=== PATIENT | female | born 1970 | race Caucasian/White ===

== ENCOUNTER 2018-08-21 12:00 | Emergency (ER) | payer SELFPAY ==
[~2018-08-21] VITALS: Ht 152.4 cm; Wt 61.2 kg
[~2018-08-21 12:00] MED LIST: SULF1TAB38 PO
--- OUTSIDE RECORDS SUMMARY | 2018-08-21 12:05 | XMS REPORT ---
Author VIKY Randall Organization [employer] Address Unknown Phone Unavailable Care Team Providers Care Corporate Legal Manager Name Role Phone VIKY CALIXTO CP Unavailable Allergies No Known Allergies Problems Problem Type Condition Code Onset Dates Condition Status Problem Contact dermatitis and other eczema, due to unspecified cause 692.9 Active Problem Unspecified breast screening V76.10 Active Problem Unspecified pruritic disorder 698.9 Active Problem Cough 786.2 Active Problem Influenza with other respiratory manifestations 487.1 Active Problem Screening for malignant neoplasm of the cervix V76.2 Active Problem Unspecified vaginitis and vulvovaginitis 616.10 Active Medications No Known Medications Results No Known Results Summary Purpose [employer] Submission
--- OUTSIDE RECORDS SUMMARY | 2018-08-21 12:05 | XMS REPORT | Continuity of Care Document ---
Author Author [facility] Address Unknown Phone Unavailable Allergies There is no data. Medications There is no data. Problems Date Dx Coded Attending Type Code Diagnosis Diagnosed By 08/26/2009 DOYLE MERCADO APRN 719.44 PAIN IN JOINT, HAND 04/23/2012 DOYLE MERCADO APRN 616.10 VAGINITIS VULVOVAGINITIS UNSPECIFIED 04/23/2012 DOYLE MERCADO APRN V76.10 BREAST CANCER SCREENING 04/23/2012 DOYLE MERCADO APRN V76.2 CERVICAL CANCER SCREENING (PAP SMEAR) 06/12/2012 DOYLE MERCADO APRN 692.9 DERMATITIS CONTACT UNSPECIFIED 06/12/2012 DOYLE MERCADO APRN 698.9 PRURITUS NOS 10/27/2014 DOYLE MERCADO APRN 487.1 INFLUENZA 10/27/2014 DOYLE MERCADO APRN 786.2 COUGH Procedures Code [place] [address] INFLUENZA A & B (IN-HOUSE) 10/27/2014 Results There is no data. Encounters ACCT No. Visit Date/Time Discharge Status Pt. Type Provider Facility Loc./Unit Complaint [id number] 10/27/2014 14:24:00 10/27/2014 23:59:59 CLS Outpatient DOYLE MERCADO APRN [id number] 05/24/2013 01:47:00 05/24/2013 02:59:00 DIS Emergency
--- OUTSIDE RECORDS SUMMARY | 2018-08-21 12:05 | XMS REPORT | Continuity of Care Document ---
Author Author [facility] Organization [facility] Address Unknown Phone Unavailable Care Team Providers Care Pension Fund Manager Name Role Phone [facility] Insurance Providers Payer Name Policy Number Subscriber Name Relationship Self Pay Mary Beth Reyes Self / Same As Patient Advance Directives Directive Response Recorded Date Advance Directives N 05/24/13 1:50am Organ Donor Y 05/24/13 1:50am Problems No Known Problems or Medical conditions. Social History History Response Recorded Date/Time Alcohol Use Denies Use 05/24/13 1:50am Recreational Drug Use N 05/24/13 1:50am Sexually Transmitted Disease N 05/24/13 1 :50am Allergies, Adverse Reactions, Alerts Allergen Type Severity Reaction Last Updated No Known Drug Allergies 12/08/12 Medications Medication Dose Units Route Sig Qty Days Trimethoprim/Sulfamethoxazole (Bactrim Ds) 1 Ea PO BID 5 Immunizations Name Given Type Date of Influenza Vaccine 07/29/12 H Response Recorded Date/Time Status not known Unknown Results No Known Relevant Diagnostic Tests, Laboratory Data and/or Discharge Summary. Encounters Encounter Location Date/Time Departed Emergency Room [facility] 1:47am
--- NOTE | 2018-08-21 12:29 | ED Lower Extremity ---
General Chief Complaint: Lower Extremity Stated Complaint: L KNEE PAIN Nursing Triage Note: PT CO OF L KNEE PAIN, STATES STARTED HURTING YESTERDAY. STATES SOMETIMES HURTS WHEN WEATHER CHANGES. HAS TAKEN ADVIL FOR PAIN Nursing Sepsis Screen: No Definite Risk Source: patient Exam Limitations: no limitations History of Present Illness Date Seen by Provider: Aug 21, 2018 Time Seen by Provider: 12:21 Initial Comments To ER with c/o left knee pain. History of left knee pain and has had knee scope before. 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 She took an advil this morning without much relief. She does have this pain sometimes with weather changes but today the pain is worse than usual. No falls or trauma. Onset: other Severity: moderate Pain/Injury Location: left knee Method of Injury: unknown Modifying Factors: Worse With Movement Allergies and Home Medications Allergies Coded Allergies: No Known Drug Allergies (Unverified , 12/08/12) Patient Home Medication List Home Medication List Reviewed: Yes Review of Systems Constitutional: see HPI EENTM: see HPI Respiratory: no symptoms reported Cardiovascular: no symptoms reported Genitourinary: no symptoms reported Musculoskeletal: see HPI Skin: no symptoms reported Psychiatric/Neurological: No Symptoms Reported Past Iflqgkf-Iikpvy-Mmpcbf Hx Patient Social History Alcohol Use: Denies Use Recreational Drug Use: No Smoking Status: Never a Smoker Recent Foreign Travel: No Contact w/Someone Who Travel: No Recent Infectious Disease Expo: No Recent Hopitalizations: No Immunizations Up To Date Tetanus Booster (TDap): Unknown Date of Influenza Vaccine: Jul 29, 2012 Past Medical History Respiratory: No Cardiac: No Neurological: No Reproductive Disorders: No 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 oz. 61.169805ry; BMI Method:Stated General Appearance: WD/WN, no apparent distress HEENT: PERRL/EOMI, normal ENT inspection Hips: bilateral hip non-tender, bilateral hip normal inspection, bilateral hip normal range of motion Legs: bilateral leg non-tender, bilateral leg normal range of motion Knees: left knee pain, left knee soft tissue tenderness Ankles: bilateral ankle non-tender, bilateral ankle normal inspection, bilateral ankle normal range of motion Feet: bilateral foot non-tender, bilateral foot normal inspection, bilateral foot normal range of motion Neurologic/Psychiatric: alert, normal mood/affect, oriented x 3 Skin: normal color, warm/dry Progress/Results/Core Measures Results/Orders My Orders Orders - BOB ROUSE APRN Dexamethasone Injection (Decadron Inject (08/21/18 12:30) Tramadol Tablet (Ultram Tablet) (08/21/18 12:30) Vital Signs/I&O 08/21/18 12:08 Temp 97.5 Pulse 54 Resp 18 B/P (MAP) 128/81 (97) Pulse Ox 97 Blood Pressure Mean: 97 Departure Impression Primary Impression: Internal derangement of knee Qualified Codes: M23.92 - Unspecified internal derangement of left knee Disposition: HOME, SELF-CARE Condition: Stable Departure-Patient Inst. Decision time for Depature: 12:30 Referrals: [facility] (PCP/Family) Primary Care Physician Patient Instructions: Arthritis and Exercise Add. Discharge Instructions: 1. I suspect that your knee pain is at least partially if not completely caused by arthritis. Given that there was no injury, we would expect the bones to look normal on x-ray which is essentially all that an x-ray can tell us. In your case an MRI would be a more useful test. I've made an appointment for you with [facility] to see nurse practitioner Gisell Martin on August 28 at 8: 40 AM. Since MRI has to be scheduled, discuss your knee pain with her at that visit and if she feels that an MRI is warranted further evaluate this. All discharge instructions reviewed with patient and/or family. Voiced understanding. Scripts Tramadol HCl (Ultram) 50 Mg Tablet 50 MG PO Q6H PRN for PAIN-MODERATE TO SEVERE, #14 TAB Prov: BOB ROUSE APRN 08/21/18 Work/School Note: Work Release Form Date Seen in the Emergency Department: Aug 21, 2018 Return to Work: Aug 23, 2018 BOB ROUSE APRN Aug 21, 2018 12:29
[2018-08-21] MEDS ORDERED: DEXAMETHASONE 10 MG/ML (DECADRON) 1 ML VIAL IM ONE (12:30)
[2018-08-21] MEDS ORDERED: TRAM-42 PO (12:32)
[2018-08-21 12:38] VITALS: BP 128/81
== END 2018-08-21 12:38 | disposition home or self-care (01) ==
LOC: EDUNIT# 12:00 → ER 12:02
DX: M23.92 Unspecified internal derangement of left knee (principal); Z98.51 Tubal ligation status
CPT/HCPCS: 96372; 99284

== ENCOUNTER 2019-04-08 12:44 | Emergency (ER) | payer SELFPAY ==
[~2019-04-08] VITALS: Ht 152.4 cm; Wt 61.2 kg
[~2019-04-08 12:44] MED LIST changes: +TRAM-42 PO
[2019-04-08] MEDS ORDERED: NS IV 1000 ML 1,000 ML IV SCH (13:01)
[2019-04-08 13:19] LABS: BASOPHILS % (AUTO) 0 % (0-10); EOSINOPHILS # (AUTO) 0.1 10^3/uL (0.0-0.3); EOSINOPHILS % (AUTO) 2 % (0-10); HEMATOCRIT 29 % (35-52); HEMOGLOBIN 9.2 G/DL (11.5-16.0); LYMPHOCYTES # (AUTO) 1.2 X 10^3 (1.0-4.0); LYMPHOCYTES % (AUTO) 26 % (12-44); MEAN CORPUSCULAR HEMOGLOBIN 25 PG (25-34); MEAN CORPUSCULAR HGB CONC 32 G/DL (32-36); MEAN CORPUSCULAR VOLUME 78 FL (80-99); MEAN PLATELET VOLUME 9.4 FL (7.4-10.4); MONOCYTES # (AUTO) 0.3 X 10^3 (0.0-1.0); MONOCYTES % (AUTO) 6 % (0-12); NEUTROPHILS % (AUTO) 65 % (42-75); PLATELET COUNT 287 10^3/uL (130-400); RED CELL DISTRIBUTION WIDTH 12.8 % (10.0-14.5); WHITE BLOOD COUNT 4.5 10^3/uL (4.3-11.0)
--- NOTE | 2019-04-08 13:24 | ED GU-Female ---
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 a&ox4. c/o excessive bleeding while on menstraul cycle. Pt reports to have gone through >20 super tampons since 0300 this am. Reports dark red bleeding with blood clots. Repots menstraul cycle began on 04/06/18. Denies pain or discomfort. Nursing Sepsis Screen: No Definite Risk History of Present Illness Date Seen by Provider: Apr 08, 2019 Time Seen by Provider: 12:55 Initial Comments 49-year-old female presents for menorrhagia. She reports beginning on March 14 she had a heavy period that lasted 3-5 days, it subsided and there was no bleeding for 4-5 days then she began having heavy bleeding for 2-3 days. The bleeding started again 2 days ago. She is going through 1-2 tampons/hour and having some bleeding through to her clothes. 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 She is due for her well woman check up with Gisell Martin APRN at [facility]. No history of irregular cycles until the last few months. She had 6 vaginal deliveries with no post bleeding problems. She did begin a Multi Vitamin with Iron. She denies feeling weak, dizzy or fatigued. She had tubal ligation but no other surgeries or health issues. Timing/Duration: just prior to arrival Severity/Quality: severe Radiation: none Prior Genitourinary Problems: none Sexual [place] History: less than 2 months ago, single partner (Since 2002) Associated Symptoms: denies symptoms Allergies and Home Medications Allergies Coded Allergies: No Known Drug Allergies (Unverified , 12/08/12) Home Medications Medroxyprogesterone Acetate 10 Mg Tablet, 10 MG PO DAILY Prescribed by: PATSY ROE on 04/08/19 1341 Tramadol HCl 50 Mg Tablet, 50 MG PO Q6H PRN for PAIN-MODERATE TO SEVERE Prescribed by: BOB ROUSE on 08/21/18 1232 Patient Home Medication List Home Medication List Reviewed: Yes Review of Systems Review of Systems Constitutional: no symptoms reported, see HPI Genitourinary: see HPI, discharge (heavy menstrual bleeding) : No (tubal ligation) All Other Systemes Reviewed Negative Unless Noted: Yes Past Geqkege-Wovvfx-Mfpqss Hx Past Med/Social Hx: Reviewed Nursing Past Med/Soc Hx Patient Social History Recent Foreign Travel: No Contact w/Someone Who Travel: No Recent Infectious Disease Expo: No Recent Hopitalizations: No Immunizations Up To Date Tetanus Booster (TDap): Unknown Date of Influenza Vaccine: Jul 29, 2012 Past Medical History Respiratory: No Cardiac: No Neurological: No Reproductive Disorders: No DOCUMENTATION CONSULTANT History: Tubal Ligation Sexually Transmitted Disease: No Gastrointestinal: No Musculoskeletal: No Endocrine: No Cancer: No Psychosocial: No Integumentary: No Blood Disorders: No Family Medical History Cancer Physical Exam Vital Signs Vital Signs - First Documented 04/08/19 12:53 Temp 97.5 Pulse 91 Resp 16 B/P (MAP) 116/84 (95) Pulse Ox 98 O2 Delivery Room Air Capillary Refill : Less Than 3 Seconds Height, Weight, BMI Height: 5'0" Weight: 135lbs. oz. 61.184642gz; BMI Method:Stated General Appearance: WD/WN, no apparent distress HEENT: PERRL/EOMI, normal ENT inspection Neck: non-tender, full range of motion Cardiovascular: normal peripheral pulses, regular rate, rhythm, no murmur Respiratory: chest non-tender, lungs clear, normal breath sounds Gastrointestinal: normal bowel sounds, non tender, soft Back: normal inspection, no CVA tenderness Neurologic/Psychiatric: no motor/sensory deficits, alert, normal mood/affect, oriented x 3 Skin: normal color, warm/dry Progress/Results/Core Measures Suspected Sepsis Recent Fever Within 48 Hours: No Infection Criteria Present: None New/Unexplained Altered Menta: No Sepsis Screen: No Definite Risk SIRS Temperature:97.5 Pulse: 91 Respiratory Rate: 16 Laboratory Tests 04/08/19 13:08: White Blood Count 4.5 Blood Pressure 116 /84 Mean: 95 Laboratory Tests 04/08/19 13:08: Creatinine 0.76, INR Comment 0.9, Platelet Count 287, Total Bilirubin 0.3 Results/Orders Lab Results Laboratory Tests Test 04/08/19 13:08 04/08/19 13:47 Range/Units White Blood Count 4.5 4.3-11.0 10^3/uL Red Blood Count 3.69 L 4.35-5.85 10^6/uL Hemoglobin 9.2 L 11.5-16.0 G/DL Hematocrit 29 L 35-52 % Mean Corpuscular Volume 78 L 80-99 FL Mean Corpuscular Hemoglobin 25 25-34 PG Mean Corpuscular Hemoglobin Concent 32 32-36 G/DL Red Cell Distribution Width 12.8 10.0-14.5 % Platelet Count 287 130-400 10^3/uL Mean Platelet Volume 9.4 7.4-10.4 FL Neutrophils (%) (Auto) 65 42-75 % Lymphocytes (%) (Auto) 26 12-44 % Monocytes (%) (Auto) 6 0-12 % Eosinophils (%) (Auto) 2 0-10 % Basophils (%) (Auto) 0 0-10 % Neutrophils # (Auto) 3.0 1.8-7.8 X 10^3 Lymphocytes # (Auto) 1.2 1.0-4.0 X 10^3 Monocytes # (Auto) 0.3 0.0-1.0 X 10^3 Eosinophils # (Auto) 0.1 0.0-0.3 10^3/uL Basophils # (Auto) 0.0 0.0-0.1 10^3/uL Prothrombin Time 12.6 12.2-14.7 SEC INR Comment 0.9 0.8-1.4 Activated Partial Thromboplast Time 27 24-35 SEC Sodium Level 141 135-145 MMOL/L Potassium Level 3.8 3.6-5.0 MMOL/L Chloride Level 109 H 98-107 MMOL/L Carbon Dioxide Level 25 21-32 MMOL/L Anion Gap 7 5-14 MMOL/L Blood Urea Nitrogen 11 7-18 MG/DL Creatinine 0.76 0.60-1.30 MG/DL Estimat Glomerular Filtration Rate > 60 BUN/Creatinine Ratio 14 Glucose Level 96 70-105 MG/DL Calcium Level 9.2 8.5-10.1 MG/DL Corrected Calcium 9.0 8.5-10.1 MG/DL Total Bilirubin 0.3 0.1-1.0 MG/DL Aspartate Amino Transf (AST/SGOT) 13 5-34 U/L Alanine Aminotransferase (ALT/SGPT) 10 0-55 U/L Alkaline Phosphatase 73 40-136 U/L Total Protein 6.5 6.4-8.2 GM/DL Albumin 4.3 3.2-4.5 GM/DL Urine Color RED H Urine Clarity CLOUDY Urine pH 6 5-9 Urine Specific [place] 1.015 L 1.016-1.022 Urine Protein 3+ H NEGATIVE Urine Glucose (UA) NEGATIVE NEGATIVE Urine Ketones NEGATIVE NEGATIVE Urine Nitrite NEGATIVE NEGATIVE Urine Bilirubin NEGATIVE NEGATIVE Urine Urobilinogen NORMAL NORMAL MG/DL Urine Leukocyte Esterase 2+ H NEGATIVE Urine RBC (Auto) 5+ H NEGATIVE Urine RBC TNTC H /HPF Urine WBC 0-2 /HPF Urine Squamous Epithelial Cells 0-2 /HPF Urine Crystals NONE /LPF Urine Bacteria NEGATIVE /HPF Urine Casts NONE /LPF Urine Mucus NEGATIVE /LPF Urine Culture Indicated NO My Orders Orders - PATSY ROE Cbc With Automated Diff (04/08/19 12:51) Comprehensive Metabolic Panel (04/08/19 12:51) Partial Thromboplastin Time (04/08/19 12:51) Ua Culture If Indicated (04/08/19 12:51) Protime With Inr (04/08/19 12:51) Ed Iv/Invasive Line Start (04/08/19 13:01) Ns Iv 1000 Ml (Sodium Chloride 0.9%) (04/08/19 13:01) Medroxyprogesterone Tablet (Provera Tabl (04/09/19 09:00) Ferrous Sulfate Tablet (Feosol Tablet) (04/08/19 13:44) Vital Signs/I&O 04/08/19 04/08/19 12:53 14:35 Temp 97.5 97.5 Pulse 91 85 Resp 16 16 B/P (MAP) 116/84 (95) 109/86 (94) Pulse Ox 98 98 O2 Delivery Room Air Room Air Capillary Refill : Less Than 3 Seconds Blood Pressure Mean: 95 Progress Note : Time: 12:55 Progress Note Patient seen and evaluated, will obtain labs, normal saline 1 L IV. 1340 Hgb 9.2; patient reports bleeding has decreased since admission to the emergency department. No signs or symptoms of anemia. All other labs essentially normal. Provera 10 mg orally and iron. 1415 vital signs remained stable. Discharge instructions and return precautions reviewed with the patient. Will follow-up with Dr. Quintanilla at [facility] in one week. All questions answered. Departure Impression Primary Impression: Dysfunctional uterine bleeding Disposition: HOME, SELF-CARE Condition: Improved Departure-Patient Inst. Decision time for Depature: 14:15 Referrals: [facility] (PCP/Family) Primary Care Physician Patient Instructions: Good Food Sources of Iron, Heavy Periods (DC) Add. Discharge Instructions: You have been scheduled with a well woman check at [facility] with Dr. Larson on April 21 at 3:00 PM. If you need to reschedule or cancel, please call [phone]. Take the Provera one tablet daily as prescribed. Continue to take a multiple vitamin with iron. You may want to take Stool Softener (over the counter), Iron can cause constipation. Eat foods that are high in iron: spinach, red meats, etc. Increase water intake: 16 oz every 2 hours while awake. Change positions from sitting, standing and lying slowly. Do not stand on chairs, ladders, or other rays devices if feeling weak or dizzy. Return to emergency department for shortness breath, dizziness, loss of consciousness, increased blood loss or new concerns. All discharge instructions reviewed with patient and/or family. Voiced understanding. Scripts Medroxyprogesterone Acetate (Provera) 10 Mg Tablet 10 MG PO DAILY, #20 TAB 0 Refills Prov: PATSY ROE 04/08/19 Work/School Note: Work Release Form Date Seen in the Emergency Department: Apr 08, 2019 Return to Work: Apr 09, 2019 Restrictions: No Restrictions Other Restrictions Listed Below: Avoid standing on elevated surface. Copy Copies To 1: AMARILIS QUINTANILLA AMY ARNP Apr 08, 2019 13:24
[2019-04-08 13:32] LABS: INR 0.9 (0.8-1.4); PROTHROMBIN TIME PATIENT 12.6 SEC (12.2-14.7)
[2019-04-08] MEDS ORDERED: MEDR10TA PO (13:41)
[2019-04-08 13:42] LABS: ALANINE AMINOTRANSFERASE 10 U/L (0-55); ALBUMIN 4.3 GM/DL (3.2-4.5); ALKALINE PHOSPHATASE 73 U/L (40-136); BILIRUBIN,TOTAL 0.3 MG/DL (0.1-1.0); BUN/CREATININE RATIO 14; CALCIUM 9.2 MG/DL (8.5-10.1); CARBON DIOXIDE 25 MMOL/L (21-32); CHLORIDE 109 MMOL/L (98-107); CREATININE SERUM 0.76 MG/DL (0.60-1.30); GFR ESTIMATED > 60; GLUCOSE 96 MG/DL (70-105); POTASSIUM 3.8 MMOL/L (3.6-5.0); SODIUM 141 MMOL/L (135-145); TOTAL PROTEIN 6.5 GM/DL (6.4-8.2)
[2019-04-08] MEDS ORDERED: FERROUS SULF 325 MG (IRON) TAB PO STA (13:44)
--- OUTSIDE RECORDS SUMMARY | 2019-04-08 13:46 | XMS REPORT ---
Author Author Migration, Doctor Organization [facility] Address Unknown Phone Unavailable Care Team Providers Care Group Supervisor Yard Name Role Phone Migration, Doctor Unavailable Unavailable PROBLEMS Unknown Problems ALLERGIES No Information ENCOUNTERS Encounter Location Date Diagnosis [facility] [id number] [place] [id number] Sep, Acute pain of left knee M25.562 ; Screening for diabetes mellitus Z13.1 ; Screening for thyroid disorder Z13.29 ; Screening, anemia, deficiency, iron Z13.0 and Screening for lipoid disorders Z13.[id number] [place] [phone] Jul, [facility] [address] [address] February, Irregular menses N92.6 [facility] [id number] [place] [phone] Jan, [facility] [id number] [place] [phone] Jan, [facility] [id number] [place] [phone] Sep, [facility] [id number] [place] [phone] Sep, [facility] [id number] [place] [phone] Jun, [facility] [id number] [place] [phone] Jun, [facility] [id number] [place] [phone] May, [facility] [id number] [place] [phone] Apr, [facility] [address] [facility] [id number] [place] [address] Apr, [facility] [address] [facility] [id number] [address] Mar, [facility] [address] [facility] [id number] [place] [address] Jul, IMMUNIZATIONS No Known Immunizations SOCIAL HISTORY Never Assessed REASON FOR VISIT [facility] PLAN OF CARE VITAL SIGNS MEDICATIONS No Known Medications RESULTS No Results PROCEDURES No Known procedures INSTRUCTIONS MEDICATIONS ADMINISTERED No Known Medications MEDICAL (GENERAL) HISTORY Type Description Date Surgical History Scar tissue removal bilateral knee Surgical History R&L carpal tunnel Surgical History Tubal Ligation Surgical History Exploratory Lap Hospitalization History Childbirth Hospitalization History UTI
--- OUTSIDE RECORDS SUMMARY | 2019-04-08 13:46 | XMS REPORT ---
Author Author Migration, Doctor Organization [facility] Address Unknown Phone Unavailable Care Team Providers Care Interior Decorator Name Role Phone Migration, Doctor Unavailable Unavailable PROBLEMS Unknown Problems ALLERGIES No Information ENCOUNTERS Encounter Location Date Diagnosis [facility] [id number] [place] [phone] Sep, Acute pain of left knee M25.562 ; Screening for diabetes mellitus Z13.1 ; Screening for thyroid disorder Z13.29 ; Screening, anemia, deficiency, iron Z13.0 and Screening for lipoid disorders Z13.220 [facility] [id number] [place] [phone] Jul, [facility] [address] [address] February, Irregular menses N92.6 [facility] [id number] [place] [phone] Jan, [facility] [id number] [place] [phone] Jan, [facility] [id number] [place] [phone] Sep, [facility] [id number] [place] [phone] Sep, [facility] [id number] [place] [phone] Jun, [facility] [id number] [place] [phone] Jun, [facility] [id number] [place] [phone] May, [facility] [id number] [place] [phone] Apr, [facility] [address] [facility] [id number] [place] [address] Apr, [facility] [address] [facility] [id number], [place] [address] Mar, [facility] [address] [facility] [id number] [place] [address] Jul, IMMUNIZATIONS No Known Immunizations SOCIAL HISTORY Never Assessed REASON FOR VISIT [facility] PLAN OF CARE VITAL SIGNS MEDICATIONS No Known Medications RESULTS No Results PROCEDURES No Known procedures INSTRUCTIONS MEDICATIONS ADMINISTERED No Known Medications MEDICAL (GENERAL) HISTORY Type Description Date Surgical History Scar tissue removal bilateral knee Surgical History R&L carpal tunnel Surgical History Tubal Ligation Surgical History Exploratory Lap Hospitalization History Childbirth Hospitalization History UTI
--- OUTSIDE RECORDS SUMMARY | 2019-04-08 13:46 | XMS REPORT ---
Author Author Migration, Doctor Organization [facility] Address Unknown Phone Unavailable Care Team Providers Care Paint Supervisor Name Role Phone Migration, Doctor Unavailable Unavailable PROBLEMS Unknown Problems ALLERGIES No Information ENCOUNTERS Encounter Location Date Diagnosis [facility] [id number] [place] [phone] Sep, Acute pain of left knee M25.562 ; Screening for diabetes mellitus Z13.1 ; Screening for thyroid disorder Z13.29 ; Screening, anemia, deficiency, iron Z13.0 and Screening for lipoid disorders Z13.220 [facility] [id number] [place] [phone] Jul, [facility] [address] [address] February, Irregular menses N92.6 [facility] [id number] [place] [phone] Jan, [facility] [id number] [place] [phone] Jan, [facility] [id number] [place] [phone] Sep, [facility] [id number] [place] [phone] Sep, [facility] [id number] [place] [phone] Jun, [facility] [id number] [place] [phone] Jun, [facility] [id number] [place] [phone] May, [facility] [id number] [place] [phone] Apr, [facility] [address] [facility] [id number] [place] [address] Apr, [facility] [address] [facility] [id number] [address] Mar, [facility] [address] [facility] [id number] [place] [address] Jul, IMMUNIZATIONS No Known Immunizations SOCIAL HISTORY Never Assessed REASON FOR VISIT [facility] [place] VITAL SIGNS MEDICATIONS No Known Medications RESULTS No Results PROCEDURES No Known procedures INSTRUCTIONS MEDICATIONS ADMINISTERED No Known Medications MEDICAL (GENERAL) HISTORY Type Description Date Surgical History Scar tissue removal bilateral knee Surgical History R&L carpal tunnel Surgical History Tubal Ligation Surgical History Exploratory Lap Hospitalization History Childbirth Hospitalization History UTI
--- OUTSIDE RECORDS SUMMARY | 2019-04-08 13:46 | XMS REPORT | Continuity of Care Document ---
Author Organization Unknown Address Unknown Allergies Active Description Code Type Severity Reaction Onset Reported/Identified Relationship to Patient Clinical Status Yes No Known Drug Allergies [id number] Drug Allergy Unknown N/A 12/08/2012 Medications There is no data. Problems Date [...] 06/12/2012 DOYLE MERCADO APRN 698.9 PRURITUS NOS 05/24/2013 ADDY DYER, DARIN Mena Ot 459.89 CIRCULATORY DISEASE NEC 10/27/2014 DOYLE MERCADO APRN 487.1 INFLUENZA 10/27/2014 DOYLE MERCADO APRN 786.2 COUGH Procedures Code [place] [address] INFLUENZA A & B (IN-HOUSE) 10/27/2014 Results There is no data. Encounters ACCT No. Visit Date/Time Discharge Status Pt. Type Provider Facility Loc./Unit Complaint [id number] 10/27/2014 14:24:00 10/27/2014 23:59:59 CLS Outpatient DOYLE MERCADO APRN [id number] 10/23/2018 09:20:00 10/23/2018 23:59:59 CLS Outpatient FRANK RASHID [facility] [place] [id number] 08/21/2018 12:02:00 08/21/2018 12:38:00 DIS Emergency BOB ROUSE APRN [facility] ER L KNEE PAIN [id number] 05/24/2013 01:47:00 05/24/2013 02:59:00 DIS Emergency ADDY DYER, DARIN [facility] ER BRUISE ON RT ARM
--- OUTSIDE RECORDS SUMMARY | 2019-04-08 13:46 | XMS REPORT | Continuity of Care Document ---
Author Organization Unknown Address Unknown Allergies Active Description Code Type Severity Reaction Onset Reported/Identified Relationship to Patient Clinical Status Yes No Known Drug Allergies [id number] Drug Allergy Unknown N/A 12/08/2012 Medications There is no data. Problems Date Dx Coded Attending Type Code Diagnosis Diagnosed By 08/26/2009 DOYLE MERCADO APRN 719.44 PAIN IN JOINT, HAND 04/23/2012 DOYLE MERCADO APRN 616.10 VAGINITIS VULVOVAGINITIS UNSPECIFIED 04/23/2012 DOYLE MERCADO APRN V76.10 BREAST CANCER SCREENING 04/23/2012 DOYLE MERCADO APRN V76.2 CERVICAL CANCER SCREENING (PAP SMEAR) 06/12/2012 DOYEL MERCADO APRN 692.9 DERMATITIS CONTACT UNSPECIFIED 06/12/2012 DOYLE MERCADO APRN 698.9 PRURITUS NOS 05/24/2013 ADDY DYER, DARIN Mena Ot 459.89 CIRCULATORY DISEASE NEC 10/27/2014 DOYLE MERCADO APRN 487.1 INFLUENZA 10/27/2014 DOYLE MERCADO APRN 786.2 COUGH Procedures Code Description [place] [address] INFLUENZA A & B (IN-HOUSE) 10/27/2014 Results There is no data. Encounters ACCT No. Visit Date/Time Discharge Status Pt. Type Provider Facility Loc./Unit Complaint [id number] 10/27/2014 14:24:00 10/27/2014 23:59:59 CLS Outpatient DOYLE MERCADO APRN [id number] 10/23/2018 09:20:00 10/23/2018 23:59:59 CLS Outpatient FRANK RASHID [facility] [id number] 08/21/2018 12:02:00 08/21/2018 12:38:00 DIS Emergency BOB ROUSE APRN [facility] ER L KNEE PAIN [id number] 05/24/2013 01:47:00 05/24/2013 02:59:00 DIS Emergency ADDY DYER, DARIN [facility] ER [address] ON [address] ARM
--- OUTSIDE RECORDS SUMMARY | 2019-04-08 13:46 | XMS REPORT ---
Author Author Migration, Doctor Organization [facility] Address Unknown Phone Unavailable Care Team Providers Care Ad Copy Writer Name Role Phone Migration, Doctor Unavailable Unavailable PROBLEMS Unknown Problems ALLERGIES No Information ENCOUNTERS Encounter Location Date Diagnosis [facility] [id number] [place] [phone] Sep, Acute pain of left knee M25.562 ; Screening for diabetes mellitus Z13.1 ; Screening for thyroid disorder Z13.29 ; Screening, anemia, deficiency, iron Z13.0 and Screening for lipoid disorders Z13.220 [facility] [id number] [place] [phone] Jul, [facility] [address] [address] February, Irregular menses N92.6 [facility] [id number] [place] [phone] Jan, [facility] [id number] [place] [phone] Jan, [facility] [id number] [place] [phone] Sep, [facility] [id number] [place] [phone] Sep, [facility] [id number] [place] [phone] Jun, [facility] [id number] [place] [phone] Jun, [facility] [id number] [place] [phone] May, [facility] [id number] [place] [phone] Apr, [facility] [address] [facility] [id number] [place] [address] Apr, [facility] [address] [facility] [id number] [address] Mar, [facility] [address] [facility] [id number] [place] [address] Jul, IMMUNIZATIONS No Known Immunizations SOCIAL HISTORY Never Assessed REASON FOR VISIT [facility] [place] OF CARE VITAL SIGNS MEDICATIONS Medication Instructions Dosage Frequency Start Date End Date Duration Status Doxycycline Hyclate 100 mg take 1 tablet (100 mg) by oral route 2 times per day for 7 days May, Active Tamiflu 75 mg 1 capsule by Oral route 2 times per day for 5 day(s) Treatment Dosing Sep, Active Azithromycin 250 mg 2 Tablet by Oral route on day 1 then take 1 daily for 4 days Sep, Active Metronidazole 500 mg 1 tablet by Oral route 2 times per day for 7 days Jun, Active Tessalon Perles 100 mg 1 capsule by Oral route 3 times per day PRN Sep, Active RESULTS No Results PROCEDURES No Known procedures INSTRUCTIONS MEDICATIONS ADMINISTERED No Known Medications MEDICAL (GENERAL) HISTORY Type Description Date Surgical History Scar tissue removal bilateral knee Surgical History R&L carpal tunnel Surgical History Tubal Ligation Surgical History Exploratory Lap Hospitalization History Childbirth Hospitalization History UTI
[2019-04-08 13:56] LABS: BILIRUBIN,URINE NEGATIVE (NEGATIVE); GLUCOSE, URINE (UA) NEGATIVE (NEGATIVE); KETONES,URINE NEGATIVE (NEGATIVE); LEUKOCYTE ESTERASE ,URINE 2+ (NEGATIVE); NITRITE,URINE NEGATIVE (NEGATIVE); PH,URINE 6 (5-9); PROTEIN,URINE 3+ (NEGATIVE); UROBILINOGEN,URINE NORMAL (NORMAL)
[2019-04-08 14:10] LABS: BACTERIA,URINE NEGATIVE /HPF; RBC,URINE TNTC /HPF; SQUAMOUS EPITHELIAL CELL,UR 0-2 /HPF; WBC,URINE 0-2 /HPF
[2019-04-08 14:35] VITALS: BP 109/86
[2019-04-08 14:39] LABS: CLARITY,URINE CLOUDY; COLOR,URINE RED
[2019-04-09] MEDS ORDERED: medroxyPROGESTERone 10 MG (PROVERA) TAB PO SCH (09:00)
== END 2019-04-08 14:36 | disposition home or self-care (01) ==
LOC: EDUNIT# 12:44 → ER 12:45
DX: N93.8 Other specified abnormal uterine and vaginal bleeding (principal); Z79.52 Long term (current) use of systemic steroids; Z98.51 Tubal ligation status
CPT/HCPCS: 36415; 80053; 81000; 85025; 85610; 85730; 96360

== ENCOUNTER → 2023-01-18 | Outpatient (CLI) | payer BC ==
[~2023-01-18] VITALS: Ht 152.4 cm; Wt 81.8 kg
[~2023-01-18] MED LIST changes: +LIDOCAINE 1% INJ 30 ML (XYLOCAINE) VIAL INJ ONE; +MEDR10TA PO
--- NOTE | 2023-01-18 15:38 | Diagnostic Imaging Report ---
INDICATION: Right breast nodule. Patient presents for ultrasound-guided biopsy. Patient brought to the sonographic suite placed on table in the supine position. Ultrasound imaging of the right breast was performed to evaluate appropriate entry site. Right breast was then prepped and draped in usual sterile fashion. Small amount of 1% lidocaine was utilized for local anesthesia. A total of 4 passes were made into the hypoechoic nodule at the 3 o'clock location of the right breast, 4 cm from the nipple utilizing the 14-gauge Achieve needle. A marker clip was then deployed. Hemostasis was obtained utilizing manual compression. Patient tolerated procedure well and was sent for post procedure mammogram in satisfactory condition. IMPRESSION: Successful ultrasound-guided biopsy of the hypoechoic nodule at the 3 o'clock location of the right breast, 4 cm from the nipple. Pathology results are currently pending. Dictated by: Dictated on workstation # [id number]
--- NOTE | 2023-01-18 16:02 | Diagnostic Imaging Report ---
INDICATION: Right breast nodule. Patient status post ultrasound-guided biopsy. Unilateral right 2-D CC and ML mammography was performed. There is a marker clip in the medial right breast adjacent to the density noted on previous mammograms, status post biopsy. IMPRESSION: Marker clip placement right breast, status post ultrasound-guided biopsy. Dictated by: Dictated on workstation # [id number]
== END ==
LOC: RAD 12:40
PROVIDERS: ATTEND Clinical Nurse Specialist Emergency
DX: N63.15 Unspecified lump in the right breast, overlapping quadrants (principal)
CPT/HCPCS: 19083; 77065; A4648; G0279